=== PATIENT | male | born 1955 | race Caucasian/White ===

== ENCOUNTER 2016-12-17 07:41 | Day surgery (SDC) | payer BC ==
[2016-12-14 11:13] VITALS: BMI 21.4
[2016-12-17 08:26] VITALS: TEMP 97.6
[2016-12-17] MEDS ORDERED: DEXAMETHASONE SOD PHOSPHATE 4 MG/1 ML VIAL ONE (09:16)
[2016-12-17] MEDS ORDERED: KETOROLAC TROMETHAMINE 30 MG/1 ML VIAL ONE (09:16)
[2016-12-17] MEDS ORDERED: ceFAZolin SODIUM 1 GM VIAL ONE (09:16)
[2016-12-17] MEDS ORDERED: ONDANSETRON 4 MG/2 ML VIAL ONE (09:16)
[2016-12-17] MEDS ORDERED: MIDAZOLAM HCL 2 MG/2 ML SINGLE DOSE VIAL ONE (09:43)
--- NOTE | 2016-12-17 09:46 | HP ---
Admitting History and Physical - Primary Care Physician PCP: Stevenson Oliveira (Ortho Surgeon) - Admission Chief Complaint: Left distal biceps tear History of Present Illness: 61 yo male without any significant PMHx. Here today for elective repair of his torn left distal biceps. History Source: Patient Limitations to Obtaining History: No Limitations - Past Medical History [employer]ST[employer]: No: Alzheimer's, CVA, Dementia, Migraine, Multiple Sclerosis, Peripheral Neuropathy, Parkinson's, Seizure, Syncope, TIA, Vertigo, Other Cardiovascular: No: AFIB, Aneurysm, Aortic Insufficiency, Aortic Stenosis, CAD, CHF, Deep Vein Thrombosis, HTN, Hyperlipdemia, SD, Mitral Insufficiency, Mitral Stenosis, Murmur, Pulmonary Hypertension, Other Pulmonary: No: Asthma, Bronchitis, Cancer, COPD, O2 Dependent, Pneumonia, Previously Intubated, Pulmonary Embolus, Pulmonary Fibrosis, Sleep Apnea, Other Gastrointestinal: No: Ascites, Cancer, Constipation, Crohn's Disease, Diverticulitis, Diverticulosis, Esophageal Varices, Gastritis, GERD, GI Bleed, Hemorrhoids, Hiatal Hernia, Inflamatory Bowel Disease, Irritable Bowel Disease, Pancreatitis, Peptic Ulcer Disease, Ulcerative Colitis, Other Hepatobiliary: No: Cirrhosis, Cholelithiasis, Cholecystitis, Choledocholithiasis , Hepatitis A, Hepatitis B, Hepatitis C, Other Renal/: No: Renal Failure, Renal Inusuff, BPH, Cancer, Hematuria, Hemodialysis , Neurogenic Bladder, Renal Calculi, UTI, Other Heme/Onc: No: Anemia, B12 Deficiency, Bleeding Disorder, Cancer, Current Chemotherapy, Current Radiation Therapy, Hemochromatosis, Hypercoaguable State, Myeloproliferative Synd, Sickle Cell Disease, Sickle Cell Trait, Thrombocytopenia, Other Infectious Disease: No: AIDS, C-Diff, Herpes Zoster, HIV, MRSA, STD's, Tuberculosis, VREF, Other Psych: No: Addictions, Anxiety, Bipolar, Depression, Panic, Psychosis, Schizophrenia, Other Musculoskeletal: No: Bursitis, Chronic low back pain, Hemiparesis, Hemiplegia, Osteoarthritis, Paraplegia, Other Rheumatology: No: Fibromyalgia, Gout, Lupus, Rheumatoid Arthritis, Sarcoidosis, Vasculitis, Other ENT: No: Allergic Rhinitis, Sinusitis, Other Endocrine: No: Travis's Disease, Stella's Disease, Diabetes Insipidus, Diabetes Mellitus, Hyperparathyroidism, Hyperthyroidism, Hypothyroidism, Osteopenia, SIADH, Other Dermatology: No: Basal Cell, Cellulitis, Eczema, Melanoma, Psoriasis, Squamous Cell, Other - Past Surgical History Past Surgical History: Yes: Arthrosocopy (knee 05/2014.), Colonoscopy - Advance Directives Advance Directives: Yes: Health Care Proxy - Smoking History Smoking history: Never smoked Have you smoked in the past 12 months: No - Alcohol/Substance Use Hx Alcohol Use: Yes (SOCIALLY 1-2X WKLY) History of Substance Use: reports: None - Social History Usual Living Arrangement: Yes: With Spouse ADL: Independent History of Recent Travel: No Home Medications - Allergies Allergies/Adverse Reactions: Allergies Allergy/AdvReac Type Severity Reaction Status Date / Time No Known Drug Allergies Allergy Verified 12/14/16 10:54 - Home Medications Home Medications: Ambulatory Orders NK [No Known Home Medication] 12/14/16 Family Disease History - Family Disease History Family History: Unremarkable Review of Systems - Review of Systems Constitutional: reports: No Symptoms Eyes: reports: No Symptoms HENT: reports: No Symptoms Neck: reports: No Symptoms Cardiovascular: reports: No Symptoms Respiratory: reports: No Symptoms Gastrointestinal: reports: No Symptoms Genitourinary: reports: No Symptoms Breasts: reports: No Symptoms Reported Musculoskeletal: reports: Other (torn left distal bicep) Integumentary: reports: No Symptoms Neurological: reports: No Symptoms Endocrine: reports: No Symptoms Hematology/Lymphatic: reports: No Symptoms Psychiatric: reports: No Symptoms Physical Examination Vital Signs: Vital Signs Temperature 97.6 F 12/17/16 08:20 Pulse Rate 49 L 12/17/16 08:20 Respiratory Rate 16 12/17/16 08:20 Blood Pressure 127/74 12/17/16 08:20 O2 Sat by Pulse Oximetry (%) 100 12/17/16 08:20 Constitutional: Yes: Well Nourished, No Distress, Calm Eyes: Yes: WNL, Conjunctiva Clear, EOM Intact HENT: Yes: WNL, Atraumatic, Normocephalic Neck: Yes: WNL, Supple, Trachea Midline Cardiovascular: Yes: WNL, Regular Rate and Rhythm Respiratory: Yes: WNL, Regular, CTA Bilaterally Gastrointestinal: Yes: WNL, Normal Bowel Sounds, Soft ...Rectal Exam: Yes: Deferred Renal/: Yes: WNL Breast(s): Yes: WNL Musculoskeletal: Yes: Other (Torn distal biceps (LEFT)) Extremities: Yes: WNL Edema: No Peripheral Pulses WNL: Yes Integumentary: Yes: WNL Neurological: Yes: WNL, Alert, Oriented ...Motor Strength: WNL Psychiatric: Yes: WNL, Alert, Oriented Problem List - Problems (1) Rupture of left distal biceps tendon Assessment/Plan: NPO IVF GI / DVT PPX OR today for repair of his distal biceps tear (LEFT) Plan for dc home today after surgery once ASU criteria met Code(s): S46.212A - STRAIN OF MUSC/FASC/TEND PRT BICEPS, LEFT ARM, INIT
[2016-12-17] MEDS ORDERED: CEFAZOLIN 1 GM in DEXTROSE 5%-WATER - 50 ML IVPB ONE (09:50)
[2016-12-17] MEDS ORDERED: BUPIVACAINE HCL/EPINEPHRINE/PF 30 ML VIAL IJ ONE (10:33)
--- NOTE | 2016-12-17 11:59 | OP ---
Operative Note - Note: Operative Date: 12/17/16 Pre-Operative Diagnosis: left distal biceps tear Operation: left distal biceps repair Anesthesia: General Operative Report Dictated: Yes
--- NOTE | 2016-12-17 11:59 | DS ---
Physical Examination Vital Signs: Vital Signs Temperature 97.6 F 12/17/16 08:20 Pulse Rate 49 L 12/17/16 08:20 Respiratory Rate 16 12/17/16 08:20 Blood Pressure 127/74 12/17/16 08:20 O2 Sat by Pulse Oximetry (%) 100 12/17/16 08:20 Discharge Summary Reason For Visit: LEFT DISTAL BICEPS REPAIR Current Active Problems Rupture of left distal biceps tendon (Acute) Condition: Stable - Instructions Diet, Activity, Other Instructions: Remain in the sling. You may use your fingers. Keep the splint dry. Disposition: HOME - Home Medications Comprehensive Discharge Medication List: Ambulatory Orders NK [No Known Home Medication] 12/14/16
--- NOTE | 2016-12-17 12:14 | SURG ---
Surgery Mechanical Systems Engineer Note Mechanical Systems Engineer: Willie Diane PA-C Date of Service: 12/17/16 Diagnosis: left distal biceps tear Procedure: left distal biceps repair (anchors x2) I was present for the entirety of the operative procedure. For further detail, please refer to operative report. Visit type - Case Type Case Type: Scheduled Admission - New patient This patient is new to me today: Yes Date on this admission: 12/17/16
[2016-12-17] MEDS ORDERED: oxyCODONE HCL 5 MG TABLET PO PRN ×2 (12:41)
[2016-12-17] MEDS ORDERED: ONDANSETRON 4 MG/2 ML VIAL IVPUSH PRN (12:41)
[2016-12-17] MEDS ORDERED: LACTATED RINGERS SOLUTION 1,000 ML IV SCH (12:45)
[2016-12-17 14:38] VITALS: BP 139/69; PULSE 64
== END 2016-12-17 13:45 | disposition home or self-care (01) ==
LOC: FASU 07:41
PROVIDERS: ATTEND Orthopaedic Surgery
PROC: 0LM20ZZ Reattachment of Left Shoulder Tendon, Open Approach (ICD-10-PCS; principal; 2016-12-17 10:35)
DX: S45.212A Laceration of axillary or brachial vein, left side, initial encounter (principal); X58.XXXA Exposure to other specified factors, initial encounter; Y93.9 Activity, unspecified; Y92.9 Unspecified place or not applicable
CPT/HCPCS: 94760